=== PATIENT | male | born 1970 | race Caucasian/White ===

== ENCOUNTER 2018-10-11 16:59 | Emergency (ER) | payer MEDICAID ==
[~2018-10-11] VITALS: Ht 177.8 cm; Wt 79.0 kg
[2018-10-11 17:03] VITALS: Ht 177.8 cm; Wt 79.0 kg
[2018-10-11] MEDS ORDERED: KETOROLAC 30 MG INJ IM STA (17:48)
--- NOTE | 2018-10-11 18:45 | ERD ---
ER Documentation Chief Complaint Chief Complaint headache; dizziness x 1 week HPI 48-year-old male presents to ED complaining of headache, dizziness x1 week. He states that he had a upper respiratory infection about 3 weeks ago and is unsure if this is related. He denies any current fevers or chills. He denies any shortness of breath or signs of respiratory distress. He denies any abdominal pain, nausea, vomiting, diarrhea. He reports that he has been very stressed lately with his work. 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 ROS All systems reviewed and are negative except as per history of present illness. Allergies Allergies: Coded Allergies: No Known Allergy (Unverified , 10/11/18) PMhx/Soc Medical and Surgical Hx: pt denies Medical Hx, pt denies Surgical Hx History of Surgery: No Anesthesia Reaction: No Hx Alcohol Use: No Hx Substance Use: No Smoking Status: Never smoker FmHx Family History: No diabetes Physical Exam Vitals Vital Signs Date Temp Pulse Resp B/P (MAP) Pulse Ox O2 O2 Flow FiO2 Time Delivery Rate 10/11/18 98.4 56 18 134/75 99 Room Air 19:00 (94) 10/11/18 97.9 53 19 146/84 97 17:03 (104) Physical Exam Const: No acute distress Head: Atraumatic ENT: Normal External Ears, Nose and Mouth. Neck: Full range of motion. No meningismus. Resp: Clear to auscultation bilaterally Cardio: Regular rate and rhythm, no murmurs Abd: Soft, non tender, non distended. Normal bowel sounds Back: No midline or flank tenderness Ext: No cyanosis, or edema Neur: Awake and alert, CN 2-12 intact, no pronator drift, equal sensation throughout body bilaterally, equal strength in all extremities 5 out of 5, able to follow all commands appropriately Psych: Normal Mood and Affect Result Diagram: 10/11/18180110/11/181801 Results 24 hrs Laboratory Tests Test 10/11/18 18:02 White Blood Count 7.4 10^3/ul Red Blood Count 4.93 10^6/ul Hemoglobin 14.0 g/dl Hematocrit 40.8 % Mean Corpuscular Volume 82.8 fl Mean Corpuscular Hemoglobin 28.4 pg Mean Corpuscular Hemoglobin Concent 34.3 g/dl Red Cell Distribution Width 12.7 % Platelet Count 298 10^3/UL Mean Platelet Volume 10.8 fl Immature Granulocytes % 0.300 % Neutrophils % 70.9 % Lymphocytes % 21.1 % Monocytes % 7.2 % Eosinophils % 0.1 % Basophils % 0.4 % Nucleated Red Blood Cells % 0.0 /100WBC Immature Granulocytes # 0.020 10^3/ul Neutrophils # 5.3 10^3/ul Lymphocytes # 1.6 10^3/ul Monocytes # 0.5 10^3/ul Eosinophils # 0.0 10^3/ul Basophils # 0.0 10^3/ul Nucleated Red Blood Cells # 0.0 10^3/ul Sodium Level 140 mmol/L Potassium Level 3.9 mmol/L Chloride Level 109 mmol/L Carbon Dioxide Level 22 mmol/L Anion Gap 9 Blood Urea Nitrogen 16 mg/dl Creatinine 0.84 mg/dl Est Glomerular Filtrat Rate mL/min > 60 mL/min Glucose Level 118 mg/dl Calcium Level 10.0 mg/dl Current Medications Medications Dose Sig/Tomás Start Time Status Last (Trade) Ordered Route PRN Stop Time Admin Dose Reason Admin Ketorolac 30 mg ONCE STAT 10/11/18 DC 10/11/18 Tromethamine IM 17:48 17:55 (Toradol) 10/11/18 17:49 Procedures/MDM ED COURSE: The patient was stable throughout ED course. I kept the patient informed of laboratory and diagnostic imaging results throughout the ED course. EKG: Read by Dr. Emily Newell, attending physician. EKG shows sinus bradycardia at a rate of [address] changes, MEDICATIONS GIVEN: Toradol MEDICAL DECISION MAKING: Patient is a 48-year-old male complaining of headache and dizziness and fatigue x1 week. Low suspicion for acute myocardial infarction, pneumothorax, pneumonia, cardiac tamponade, Sivjt-Smcheenya-Csplh Syndrome, Brugada Syndrome, pulmonary embolism, AAA, aortic dissection, thoracic aortic dissection, endocarditis, myocarditis, pericarditis, cocaine-related ischemia, Boerhaaves syndrome, cardiac dysrhythmias,meningitis, intracranial bleed, seizure, stroke, TIA or other emergent conditions. At this time I think patient is suffering from stress and anxiety. He has a very stressful job in which he relies on commission in order to make any income. He has been very stressed out lately. Physical exam was unremarkable with no neuro deficits. EKG was unremarkable. Patient was told to follow-up with his primary care provider in the next 1 to 2 days for further care management in which he agreed. He was given strict return to ED precautions if symptoms persist or worsen Vital signs were reviewed. Patient is afebrile. Patient was not hypoxic. Patient was hemodynamically stable. Patient was told to follow up with primary care for further care and management. PRESCRIPTION: none DISCHARGE: At this time, patient is stable for discharge and outpatient management. I have instructed the patient to follow-up with his/her primary care physician in 1-2 days. I have discussed with the patient the possibility of needing to see a specialist for further workup and imaging studies if symptoms persist. I have instructed the patient to promptly return to the ER for any new or worsening symptoms including increased pain, fever, nausea, vomiting, weakness or LOC. The patient expressed understanding of and agreement with this plan. All questions were answered. Home care instructions were provided. Disclaimer: Inadvertent spelling and grammatical errors are likely due to EHR/dictation software use and do not reflect on the overall quality of patient care. Also, please note that the electronic time recorded on this note does not necessarily reflect the actual time of the patient encounter. Departure Diagnosis: Primary Impression: Stress Condition: Fair Patient Instructions: Stress: Causes and Effects, Stress Relief: Activities, Stress Relief: Relaxation, Stress Relief: A Positive Lifestyle, Stress Relief: Changing Your Response Referrals: [facility] YOU HAVE RECEIVED A MEDICAL SCREENING EXAM AND THE RESULTS INDICATE THAT YOU DO NOT HAVE A CONDITION THAT REQUIRES URGENT TREATMENT IN THE EMERGENCY DEPARTMENT. FURTHER EVALUATION AND TREATMENT OF YOUR CONDITION CAN WAIT UNTIL YOU ARE SEEN IN YOUR DOCTORS OFFICE WITHIN THE NEXT 1-2 DAYS. IT IS YOUR RESPONSIBILITY TO MAKE AN APPOINTMENT FOR FOLOW-UP CARE. IF YOU HAVE A PRIMARY DOCTOR --you should call your primary doctor and schedule an appointment IF YOU DO NOT HAVE A PRIMARY DOCTOR YOU CAN CALL OUR PHYSICIAN REFERRAL HOTLINE AT IF YOU CAN NOT AFFORD TO SEE A PHYSICIAN YOU CAN CHOSE FROM THE FOLLOWING [facility] [address] [facility]. [facility] [address] [facility] [place] [address] [facility]. [facility] [address] [facility]. [facility] [address] [facility]. [facility] [address] [facility]. [facility] YOU HAVE RECEIVED A MEDICAL SCREENING EXAM AND THE RESULTS INDICATE THAT YOU DO NOT HAVE A CONDITION THAT REQUIRES URGENT TREATMENT IN THE EMERGENCY DEPARTMENT. FURTHER EVALUATION AND TREATMENT OF YOUR CONDITION CAN WAIT UNTIL YOU ARE SEEN IN YOUR DOCTORS OFFICE WITHIN THE NEXT 1-2 DAYS. IT IS YOUR RESPONSIBILITY TO MAKE AN APPOINTMENT FOR FOLOW-UP CARE. IF YOU HAVE A PRIMARY DOCTOR --you should call your primary doctor and schedule and appointment IF YOU DO NOT HAVE A PRIMARY DOCTOR YOU CAN CALL OUR PHYSICIAN REFERRAL HOTLINE AT . IF YOU CAN NOT AFFORD TO SEE A PHYSICIAN YOU CAN CHOSE FROM THE FOLLOWING [facility] INSTITUTIONS: [facility] [address] [place] [address] [facility] [address] [place] [address] [facility] + [facility] [address] [place] [address] Additional Instructions: Call your primary care doctor TOMORROW for an appointment during the next 1-2 days.See the doctor sooner or return here if your condition worsens before your appointment time. RANDA CARPENTER PA-C Oct 11, 2018 18:45
[2018-10-11 19:00] VITALS: BP 134/75; PULSE 56; RESP 18
== END 2018-10-11 19:03 | disposition home or self-care (01) ==
LOC: FTE 16:59
DX: Z56.6 Other physical and mental strain related to work (principal)
CPT/HCPCS: 80048; 85025; 93005; 96372; J1885; Z7502